=== PATIENT | female | born 1985 | race African-American/Black ===

== ENCOUNTER → 2016-11-03 | Day surgery (SDC) | payer OTHER ==
[~2016-11-03] MED LIST: BUPIVACAINE HCL PF 0.25% 30 ML VIAL ONE; KETOROLAC TROMETHAMINE 30 MG/ML (IVP) VIAL IV PUSH ONE; LACTATED RINGER'S 1000 ML INJ 1,000 ML ONE; MIDAZOLAM HCL 2 MG/2 ML VIAL ONE; ONDANSETRON HCL 4 MG/2 ML VIAL IV PUSH ONE; PROPOFOL 200 MG/20 ML AMP IV ONE; ceFAZolin 2 GM PREMIX 50 ML ONE
--- NOTE | 2016-11-03 16:11 | RADRPT ---
EXAM DATE/TIME: 11/03/2016 12:51 [place] COMPARISON: FLUOROSCOPY PORTABLE UP TO 1HR, November 03, 2016, 0:00. INDICATIONS : Intraoperative examination. FINDINGS: The examination demonstrates fusion across the first tarsal/metatarsal joint. Alignment is good post fusion. CONCLUSION: 1. Fusion across the tarsal/metatarsal joint of the right first digit. Jackson Monsivais MD on November 03, 2016 at 16:09 Board Certified Radiologist. This report was verified electronically.
--- NOTE | 2016-11-04 10:50 | MP ---
cc: AG SMITH DPM DATE OF SURGERY 11/03/2016 PREOPERATIVE DIAGNOSIS Right foot with hallux abductovalgus. POSTOPERATIVE DIAGNOSIS Right foot with hallux abductovalgus. PROCEDURES PERFORMED Modified Lapidus bunionectomy. SPECIMEN None ESTIMATED BLOOD LOSS Less than 30 mL COMPLICATIONS None ANESTHESIA General with local 30 cc of 0.25% Marcaine plain TOURNIQUET TIME 58 minutes at a setting of 215 mmHg PLAN OF ACTIVITY PACU and then DC home once stable per same-day surgery criteria PROCEDURE IN DETAIL Under mild sedation, the patient was brought into the operating room, placed on the operating table in the supine position. Following the induction of LMA general anesthesia, local anesthesia was obtained about the right medial forefoot utilizing standard block fashion. The patient's right foot was then scrubbed, prepped and draped in the usual aseptic fashion. The foot was elevated, exsanguinated and the previously placed mid ankle tourniquet was inflated at 215 mmHg. An incision was made over the dorsal aspect the first MPJ which was a slight curvilinear at the level of the base of the first metatarsal medial cuneiform joint. Sharp and blunt dissection was carried down to the first MPJ. The extensor hallucis longus was retracted laterally and sharp and blunt dissection was carried down to the level of the conjoined tendon and fibular suspensory ligament which a linear L-shaped capsulotomy was performed freeing up lateral contractures. Next, an L-shaped medial capsulotomy was performed revealing a prominent dorsomedial eminence. This was then transected being careful to maintain the sagittal groove. No arthritic findings were seen within the first MPJ. A McGlamry elevator was introduced deep into the first MPJ freeing up plantar lateral contractures. Sharp and blunt dissection was carried down to the base of the first metatarsal medial cuneiform joint being careful not to violate the extensor hallucis longus or any vital neurovascular structures. Utilizing a biplanar wedging technique, the first metatarsal base and the head of the medial cuneiform, the cartilage was removed. The area was then fenestrated and then two screws were then placed dorsal distal to plantar proximal and from proximal dorsal to distal plantar. These screws were inserted utilizing proper AO technique. There was noted to be compression across the arthrodesis site without any gaping. There was also noted to be induction of the first second intermetatarsal angle. An intraoperative sesamoid axial view was taken visualizing the sesamoids directly under the first metatarsal head. The wound was flushed with copious amounts of normal saline. Periosteum and capsular closure took place utilizing a combination of Vicryl and Monocryl. Skin was closed utilizing nylon. Upon relieving the tourniquet, there is a prompt hyperemic response to all digits without any delayed capillary fill time. A bulky bandage was placed. The patient was positioned within a controlled ankle motion boot. The patient was transferred from OR to PACU with all vital signs stable. She is heel transfer weight-bear only. She will ice and elevate. I will see the patient within 3-5 days. KATRIN Reyna /2:10 PM /10:42 AM
== END | disposition home or self-care (01) ==
LOC: ESDC 11:24
PROVIDERS: ATTEND Podiatrist Foot & Ankle Surgery
DX: M20.11 Hallux valgus (acquired), right foot (principal)
CPT/HCPCS: 01480; 28297; 73630; 76000; C1713; J0690; J1885; J2250; J2405; J3010; J7120